=== PATIENT | female | born 1955 | race Caucasian/White ===

== ENCOUNTER 2019-07-09 11:26 | Inpatient (IN) ==
[2019-07-09] MEDS ORDERED: NORCO-7.5 PO PRN (13:13)
--- NOTE | 2019-07-09 13:14 | Diag Imaging Result Doc PS360 ---
EXAM: CHEST-2 VIEWS 07/09/2019 HISTORY: rectal pain TECHNIQUE: PA and lateral chest COMMENT: There is COPD. There are fibrotic changes in the right upper lobe and pleural space. There has been no apparent change since 10/07/2015. IMPRESSION: No evidence of acute disease. Electronically signed by Kenneth Edgar 07/09/2019 1:11 PM
[2019-07-09 13:46] LABS: HEMATOCRIT 49.6 % (37.0-47.0); HEMOGLOBIN 15.9 g/dL (12.0-16.0); MCH 28.5 PG (27-31); MCHC 32.1 g/dL (33-37); MCV 88.9 FL (81-99); MPV 11.2 FL (7.4-10.4); RBC 5.58 XMIL (4.2-5.4); RDW 14.5 % (11.5-14.5); WBC 6.55 X1000 (4.8-10.8)
[2019-07-09] MEDS ORDERED: XANAX PO PRN (13:46)
[2019-07-09] MEDS ORDERED: APRESOLINE IV PRN (13:48)
[2019-07-09] MEDS ORDERED: APRESOLINE IV ONE (13:48)
[2019-07-09 13:58] LABS: INR 1.02; PROTIME 13.5 Seconds (11.0-16.0)
[2019-07-09 13:59] LABS: PTT 40.1 Seconds (22.3-41.8)
--- NOTE | 2019-07-09 14:08 | EKG Report ---
Test Performed on : 07/09/2019 12:45:44 PM Test Reason : rectal pain Blood Pressure : / mmHG Vent. Rate : 083 BPM Atrial Rate : 083 BPM P-R Int : 130 ms QRS Dur : 074 ms QT Int : 390 ms P-R-T Axes : 071 016 048 degrees QTc Int : 458 ms Normal sinus rhythm. Possible Left atrial enlargement Borderline ECG When compared with ECG of 08-OCT-2015 08:16, Criteria for Inferior infarct are no longer present T wave inversion no longer evident in Anterolateral leads Confirmed by Tania RED, Cameron ([id number]) on 07/09/2019 6:56:27 PM
[2019-07-09 14:13] LABS: ALB/GLOB RATIO 1.3; ALBUMIN 4.4 g/dL (3.5-5.0); CALCIUM 10.1 mg/dL (8.8-10.2); POTASSIUM 4.3 mmol/L (3.5-5.1); TOTAL BILIRUBIN 0.55 mg/dL (0.20-1.00); TOTAL PROTEIN 7.8 g/dL (6.3-8.3)
[2019-07-09] MEDS: ZOFRAN PO PRN ×2 (14:27→21:22)
--- NOTE | 2019-07-09 15:21 | Diag Imaging Result Doc PS360 ---
EXAM: KUB ABDOMEN 07/09/2019 HISTORY: abd pain TECHNIQUE: KUB COMMENT: There is some stool in the colon without evidence of dilatation. The small bowel and stomach are not distended. There is no evidence organomegaly or mass. IMPRESSION: Nonspecific abdomen. Electronically signed by Kenneth Edgar 07/09/2019 3:18 PM
[2019-07-09] MEDS: DUONEB (A & A) INH PRN (15:23)
--- NOTE | 2019-07-09 16:44 | PROGRESS NOTE ---
DATE: 07/09/2019 SUBJECTIVE: I spoke with Marissa Rondon's , and he feels that over the last 2 years she has become less active, and over the last year she has not been able to help him outside, and he feels that she is in constant pain. She has to lay on her left side when sleeping because her right side hurts. I did discover that she has had a bone scan at [facility], and I will get that report for the chart. I have spoken to Dr. Mena and Dr. Reid about her admission. I reviewed all her labs and they appeared to be normal. She is hospitalized to figure out the etiology of this disabling pain, and also her weight loss. cc: MD Ray Chandra MD
[2019-07-09] MEDS ORDERED: NEURONTIN PO SCH (17:00)
--- NOTE | 2019-07-09 17:42 | HISTORY AND PHYSICAL ---
Ms Marissa Rondon is a 64-year-old white female patient of Dr. Brant Delarosa in [place]. For months she has experienced severe rectal pain which she describes mostly on the right side. She has been through multiple evaluations without an etiology for this pain. I have seen her twice in our outpatient offices. She has had a colonoscopy and I have done a rectal exam with no reason for her pain. She has also been evaluated by a neurosurgeon for her back. She has lost approximately 40 to 50 pounds over the last 8 months. She states she has had no rectal bleeding. She has some difficulty with bowel movements. When she was in the office today she was begging me to admit her because of this pain. It has caused her to take narcotics. PAST MEDICAL HISTORY: Hypertension, high cholesterol, coronary artery disease, depression. MEDICATIONS: Aspirin, Plavix, Lipitor, Coreg, Celexa, Neurontin, hydrocodone 7.5 mg, levothyroxine 75 mcg, Zofran. ALLERGIES: She states acetaminophen but she has been taking [place]. SOCIAL HISTORY: She lives in [place]. She does not smoke or drink. She is retired. REVIEW OF SYSTEMS: She underwent a CT scan initially in 01/15/2019 it was without contrast and was essentially normal. She also underwent a CTA of her chest because of an elevated D-dimer on 01/15/2019 which showed no evidence of embolism. She had another CT scan of her abdomen and pelvis for rectal pain on 04/09/2019 which showed a small amount of gas in the bladder, bilateral renal atrophy and diverticulosis. No other pathology was noted. She underwent colonoscopy per Dr. Andrew Reid on 01/10/2019 and it showed moderately severe diverticulosis and a lipoma was found in the ascending colon. Most recently she has had an MRI of her spine on 06/07/[address] Levi, neuro and spine physician in [place], and was told there was nothing abnormal about her back causing these symptoms. She has lost about 40 to 50 pounds over the last 8 months. She has had persistent rectal pain which she describes to the right of her rectum. The etiology is unknown. FAMILY HISTORY: Family history was performed with the patient was noncontributory. PHYSICAL EXAM: On exam, Ms Rondon is disheveled. She is middle aged. She is in no acute distress but does complain of persistent rectal pain and actually begged me to put her in the hospital try to figure out her pain. She is awake, cooperative. No focal deficit. No jaundice. No oral lesions. Poor dentition. No cervical or supraclavicular lymphadenopathy. Her heart has a regular rate. Lungs were clear to auscultation and percussion bilaterally. Her breasts are without obvious palpable mass. Her abdomen was soft, nontender, without palpable mass. No costovertebral tenderness. I have done a rectal exam on her in 2 separate occasions and no mass was felt within the rectum. She had no noticeable perianal pathology. She has palpable pulses, minimal peripheral edema. Her height is 5 feet 5 inches. Her weight is 147 pounds. Heart rate is 92, blood pressure 160/93, O2 saturation 98%. She is afebrile. LABS: Her white blood cell count is normal. Hematocrit is 49%. Electrolytes are within normal limits as is her liver function tests and her coagulations. Chest x-ray was essentially normal as was abdominal films. PLAN: I am going to admit her from my outpatient office to the hospital so that I can have the hospitalists help evaluate her for this rectal pain which I do not have an etiology for. I will leave reports from her radiologic studies on the chart. We will ask Dr. Reid to see her again for this rectal pain. cc: MD Ray Chandra MD
--- NOTE | 2019-07-09 17:59 | Diag Imaging Result Doc PS360 ---
EXAM: XRAY PELVIS W/HIP 2-3VW RT 07/09/2019 HISTORY: right side pain TECHNIQUE: AP pelvis and right hip three views COMMENT: The joint spaces are well-maintained. There is no evidence of acute fracture or dislocation. There is generalized osteopenia. There has been previous fusion at the disc space of L5-S1. IMPRESSION: No evidence of acute bony disease. Electronically signed by Kenneth Edgar 07/09/2019 5:57 PM
[2019-07-09] MEDS: PERCOCET-10 PO PRN (19:46)
--- NOTE | 2019-07-09 20:07 | PROGRESS NOTE ---
DATE: 07/09/2019 ADDENDUM: I agree with most components of the history, physical, assessment, and plan of the consultation. I evaluated the patient at bedside. At that time, Ms Rondon was lying down in left lateral decubitus. She denies any chest pain, shortness of breath, nausea, or vomiting at the moment; however, she does say that she has been having nausea every other day without any vomiting. She denies any abdominal pain; however, she persistently states that she is having pain which is a burning like feeling inside her rectum on the right side. She describes that pain as 8/10, which could come at any point during daytime, without any aggravating or relieving factors. She denies any urinary burning. She denies any urinary or fecal incontinence. She has not noticed any blood in the stool. She has previously seen a neurosurgeon who had suggested that her disk bulge was probably not contributing to her symptoms at the [facility]. VITAL SIGNS: Temperature of 97.7 degrees, pulse 70, respiratory rate 24, blood pressure 150/97. She is saturating 96% on room air. PHYSICAL EXAMINATION: General: Does not appear in any acute distress. Oral cavity: Moist. Lungs: Air entry bilaterally equal. No wheeze, rhonchi, crackles. Cardiovascular: S1, S2 normal. No murmur or gallop. Abdomen: Soft, nontender. Active bowel sounds. Extremities: No lower extremity edema. She does not have any localized tenderness over lumbar spine, sacrum, or coccyx. Her reflexes are 2+ bilaterally. Her sensation is intact to bilateral lower extremities. She is able to lift both upper and lower extremities above ground level and bend her knees without any trouble. Power is 5/5, equal bilaterally. LABORATORY DATA: CBC and BMP are unremarkable. No positive microbiological or imaging data. Hip/pelvis x-ray did not have any evidence of acute bony disease. Abdomen x-ray was unremarkable. ASSESSMENT AND PLAN: 1. Reported rectal pain on the right side. She does not have any localized tenderness over sacrum or coccyx. There is no external skin lesion over her buttocks or anus. She denies any fecal incontinence and any other fecal symptoms except constipation. I will keep patient on stool softeners to avoid constipation. I will await GI recommendation about if she would need any flexible sigmoidoscopy. I will also get pelvic ultrasound to rule out any pelvic organ prolapse, though she denies any symptoms of it at the moment. 2. 40 pound weight loss over last 9 months. The patient denies family history of cancer. She is an active smoker. I reviewed CT scan of chest, abdomen, and pelvis, which has been performed at some stage over the last 3 to 4 months, which did not detect any obvious mass. I advised her to have screening mammography outpatient and quit smoking. 3. History of essential hypertension, coronary artery disease with myocardial infarction in 2016, and depression. I will continue her home medications of aspirin, clopidogrel, atorvastatin, carvedilol, lisinopril. 4. Anxiety, depression, and neuropathy. I will continue her home gabapentin, alprazolam, and citalopram. I will also continue levothyroxine for hypothyroidism. 5. Recent history of intervertebral disk bulge at L1-L2 and L2-L3 levels. The patient denies any tingling or numbness of lower extremities. Her reflexes are 2+ bilaterally. Her sensations are intact. Her power is 5/5 at hip, knee, ankle joints. She denies any urinary or fecal incontinence. I advised her to continue regular physical activity. Thank you for allowing us to take part in this patient's care. She would need review of her medications outpatient. Hospitalist team will follow. cc: MD EVELIN Zheng
--- NOTE | 2019-07-09 20:28 | CONSULTATION ---
DATE OF CONSULTATION: 07/09/2019 REQUESTING PHYSICIAN: Dr. Pizano. REASON FOR CONSULTATION: Rectal pain and intermittent shortness of breath, weight loss. HISTORY OF PRESENT ILLNESS: Ms. Rondon is a 64-year-old female, who carries a past medical history of coronary artery disease, status post TX in 2016 with stent to the LAD, hyperlipidemia, congestive heart failure, anxiety and depression, COPD with continued tobacco use, hypertension, who reports for the last 8 to 9 months, she has been going to see Dr. Pizano for right-sided rectal pain, and she has been checked twice by him for hemorrhoids. She reports she has chronic constipation and has to take laxatives just to have a bowel movement. Her last BM was this afternoon. It was a small amount. She reports not having any appetite. She has lost 40 pounds over these last 8 to 9 months. She reports no night sweats. She went back to her PCP, Dr. Lowe, who referred her to Dr. Reid 4 months ago, who did a colonoscopy, who found diverticulosis. She reported that she was put on a diverticulosis diet, no corn, nuts, seeds, but she went back to Dr. Pizano today because she could no longer stand the rectal pain, and her home p.o. pain medications were not working anymore, so she was directly admitted to the hospital, and the hospitalists were consulted for intermittent shortness of breath that began this a.m. The patient appeared to have anxiety while I was in the room, and got up during the interview to go have a BM. PAST MEDICAL HISTORY: 1. Coronary artery disease, status post TX, with stenting to the LAD in 2016. 2. Hyperlipidemia. 3. Anxiety and depression. 4. COPD. 5. Hypertension. 6. Chronic constipation. 7. Diverticulosis. PAST SURGICAL HISTORY: 1. Appendectomy. 2. Stent to the LAD. 3. Tonsillectomy. 4. Back and neck surgery. 5. EGD [address] Reid. SOCIAL HISTORY: No alcohol. She continues to smoke a pack of cigarettes per day. FAMILY HISTORY: No coronary disease. HOME MEDICATIONS: Per EMR. REVIEW OF SYSTEMS: A 12 point review of systems was complete and negative except for those mentioned in the HPI. There is no fever, no chills, no real nausea or vomiting, no diarrhea, no chest pain, no wheezing. No abdominal pain per se. No night sweats. No appetite. 40 pound weight loss. Chronic constipation and intermittent shortness of breath that started this morning, without wheezes. She appears to have anxiety and complains of right-sided rectal pain that has been ongoing for 8 to 9 months. HOME MEDICATIONS: Again per EMR. PHYSICAL EXAMINATION: Vital Signs: Temperature is 98.4 degrees, heart rate 101, respirations 20, blood pressure was 201/126, O2 is 98% on room air. Manual heart rate was 100, blood pressure was 201/136. Repeat after hydralazine was 160/93. General: Ms. Rondon is an anxious appearing, 64- year-old female who one minute will be lying in the bed, then will sit up in the bed, then will run to the bathroom, will come back, will sit on the edge of the bed, ask for more blankets and cover up, just very anxious-appearing, but in no acute distress. HEENT: Atraumatic, normocephalic. PERRL. Neck: Supple. Trachea midline. Cardiovascular: S1, S2 appreciated. No murmurs, gallops, or rubs noted. Respiratory: Lung sounds clear bilaterally. GI: Soft, nontender, nondistended. Positive bowel sounds 4 quadrants. Extremities: Lower extremities were negative for edema. No signs of clubbing or cyanosis. Neurologic: The patient was awake, alert, oriented. Musculoskeletal: Did not note any issues with her getting from lying to sitting to standing to walking to the restroom. LABORATORY AND DIAGNOSTICS: Pending. ASSESSMENT AND PLAN: 1. Right-sided rectal pain. Have put an order for KUB. Going to rule out constipation. We will get GI involved. She reports that she got diagnosed with diverticulosis [address] Reid. She adamantly denies hemorrhoids. She states she has been checked several times for hemorrhoids. 2. Chronic constipation. We will continue with her home laxatives. 3. Diverticulosis. 4. Intermittent shortness of breath that started this a.m. The patient's oxygen saturations were 98% on room air. She does appear anxious. We will place an order for oxygen as needed and DuoNebs if needed. She does have antianxiety medications ordered as needed. 5. Anxiety and depression. Continue home medications. 6. Coronary artery disease, with a history of myocardial infarction and stenting. She is not complaining of any chest pain. 7. Hyperlipidemia. We will continue with home statin. 8. Chronic obstructive pulmonary disease. The patient continues to use tobacco. We need to continue the education on smoking cessation daily. 9. Accelerated hypertension upon admission. We will continue with Apresoline as needed and home medications. 10. Further recommendations to follow physician evaluation, laboratory and diagnostic data. Dictated by KENNY Blankenship for Ray Hampton MD cc: MD Dr. Harinder Zheng Dr., Dr. I agree with most componetn of history, physical, assessment and plan. A separate addendum has been dictated. EVELIN
[2019-07-09] MEDS: DULCOLAX PR SCH (21:23)
[2019-07-09] MEDS: MIRALAX PO SCH (21:23)
[2019-07-09] MEDS: COREG PO SCH (21:23)
[2019-07-09] MEDS: LIPITOR PO SCH (21:23)
[2019-07-10] MEDS: PERCOCET-10 PO PRN ×4 (01:47→20:39)
[2019-07-10] MEDS ORDERED: SYNTHROID PO SCH ×2 (07:00)
[2019-07-10] MEDS: PRINIVIL PO SCH (08:04)
[2019-07-10] MEDS: MOBIC PO SCH (08:04)
[2019-07-10] MEDS: CELEXA PO SCH (08:04)
[2019-07-10] MEDS: DULCOLAX PR SCH ×2 (08:04→20:43)
[2019-07-10] MEDS: PLAVIX PO SCH (08:04)
[2019-07-10] MEDS: ASPIRIN EC PO SCH (08:04)
[2019-07-10] MEDS: MILK OF MAGNESIA PO SCH (08:04)
[2019-07-10] MEDS: MIRALAX PO SCH ×2 (08:05→20:43)
[2019-07-10] MEDS: DUONEB (A & A) INH PRN (08:11)
[2019-07-10] MEDS: COREG PO SCH ×2 (08:32→20:38)
[2019-07-10] MEDS: NEURONTIN PO SCH ×3 (08:36→20:50)
--- NOTE | 2019-07-10 10:43 | Diag Imaging Result Doc PS360 ---
EXAM: US PELVIC NON-OB COMPLETE 07/10/2019 HISTORY: Right rectal pain and weight loss. TECHNIQUE: Endovaginal scan COMMENT: The uterus measures 3.3 x 3.2 x 1.9 cm with a 2 to 3 mm endometrial stripe. Right ovary is not identified. The left is 17 mm in greatest size. No abnormal fluid collections are demonstrated. IMPRESSION: No evidence of acute disease. Electronically signed by Kenneth Edgar 07/10/2019 10:40 AM
--- NOTE | 2019-07-10 11:42 | Diag Imaging Result Doc PS360 ---
EXAM: MRI PELVIS W/O CONTRAST INDICATION: right hip pain TECHNIQUE: COMPARISON: None. FINDINGS: There is an incidental small cortical bone island in the subcapital region of the right femoral neck. The osseous marrow signal involving the pelvis, sacrum, and hips appears normal. No significant hip joint effusions are appreciated. The tendinous structures of the hips and pelvis are grossly intact and exhibit normal signal. Review of the intrapelvic structures reveals sigmoid colonic diverticulosis. There has been a prior fusion at L5-S1. The lower lumbar spine is grossly unremarkable, otherwise. IMPRESSION: Essentially unremarkable MRI of the pelvis. Electronically signed by Italo Forbes 07/10/2019 11:40 AM
[2019-07-10 12:08] LABS: URINE SOURCE CLEAN CATCH
[2019-07-10 12:12] LABS: BILIRUBIN URINE NEGATIVE (NEGATIVE); BLOOD URINE NEGATIVE (NEGATIVE); COLOR YELLOW; GLUCOSE URINE NEGATIVE (NEGATIVE); KETONE URINE NEGATIVE (NEGATIVE); LEUKOCYTES URINE LARGE (NEGATIVE); NITRITE URINE POSITIVE (NEGATIVE); PH URINE 5.5; PROTEIN URINE TRACE mg/dL (NEGATIVE); SP GRAVITY URINE 1.033; TURBIDITY URINE HAZY (CLEAR); UROBILINOGEN URINE NORMAL (NORMAL)
[2019-07-10 12:13] LABS: UR EPITHELIAL CELLS <10 /HPF (<10); URINE BACTERIA 4+ /HPF; URINE RBC <10 /HPF (<10); URINE WBC TNTC /HPF (<10)
--- NOTE | 2019-07-10 13:03 | PROGRESS NOTE ---
DATE: 07/10/2019 This is hospital day 2 for Ms. Marissa Rondon. She is hospitalized with right rectal pain which is persistent and severe. The etiology of this pain is unknown. She has had normal CT scans and colonoscopy in the past. It has affected her where she cannot lay on her right side. When she sleeps, she is on her left side. She has also lost 40 pounds over the last 8 months, and her activity level has decreased. She does not look acutely ill. Her heart rate is 52. Blood pressure 111/63. O2 saturation 95%. She is a smoker. She rates her pain scale as 7/10, and there has been no change in her pain since her admission. Her white blood cell count is normal. Electrolytes are within normal limits. It must be noted that her TSH is high consistent with hypothyroidism, and we will increase her Synthroid. I have asked Dr. [facility] to see her. I have also spoke with Dr. [facility] to see her about her back and hip as a possible cause for her symptoms. Pelvic ultrasound has been requested. She is also getting an MRI. I will also order a urinalysis. cc: MD Aida Chandra MD
--- NOTE | 2019-07-10 14:27 | GASTROENTEROLOGY CONSULTATION ---
DATE: 07/10/2019 REASON FOR CONSULTATION: Rectal pain with diverticulosis. HISTORY OF PRESENT ILLNESS: Ms. Rondon is a 64-year-old female with a history of severe rectal pain, which the patient complains that it always happens on the right side and also mentioned that she always has constipation. The patient complained of nausea, denied any vomiting, and had a bowel movement yesterday. She takes laxatives like milk of magnesia, MiraLAX, and suppositories in order to regularize her bowel movements. The patient mentioned that past 8 to 9 months, she has lost approximately 50 pounds. She has denied any rectal bleeding. She saw Dr. Reid in December and a colonoscopy was done. The findings were moderately severe diverticulosis in the sigmoid colon. A lipoma was found in the ascending colon. The patient currently is on Plavix and aspirin because of her history of heart attack with stent. The patient mentioned that she has noticed a lot of mucous in her stools. PAST MEDICAL HISTORY: Heart attack status post stents, CAD, COPD, diverticulosis, hypertension, depression, anxiety, current smoker. PAST SURGICAL HISTORY: Lung surgery on the right side, back surgery, stent placement, appendectomy, and tonsillectomy. ALLERGIES: The patient is allergic to acetaminophen, propoxyphene napsylate and sulfa. SOCIAL HISTORY: The patient is , has 3 kids, and she is a smoker. She smokes 1 pack of cigarettes per day. Denies any alcohol or illicit drugs. FAMILY HISTORY: No significant GI malignancies. REVIEW OF SYSTEMS: As per HPI. Otherwise, 12-point review of system is negative. PHYSICAL EXAMINATION: Vital Signs: Temperature 98.5, pulse 51, respirations 18, blood pressure 110/57, oxygen saturation 95% on room air. The patient's weight is 147 pounds. BMI is 24.5 kg/m2. General: She is alert, oriented x3, and in no acute distress. HEENT: Pale conjunctivae. No icterus. PERRL. Neck: Supple. Lungs: Clear to auscultation in the anterior castanon. Cardiovascular: Regular rate. The patient is bradycardic. Abdomen: Soft, nontender, nondistended. Active bowel sounds heard in all 4 quadrants. Extremities: No clubbing, no cyanosis, no edema. Pedal pulses 2+ present bilaterally. Neurologic: She is alert and oriented x3. Nonfocal. Cranial nerves II through XII are grossly intact. IMAGING AND LABORATORY DATA: WBCs of 6.55, RBC 5.58, hemoglobin 15.9, hematocrit 49.6, platelet count 202,000. PT 13.5, INR is 1.02. Sodium 140, potassium 4.3, chloride 99, carbon dioxide 28, anion gap 13, BUN 17, creatinine 1.0, glucose 89, calcium 10.1. Bilirubin 0.55, AST 14, ALT 5, alkaline phosphatase 75, albumin is 4.4. TSH is 14.74. Urinalysis showed trace of protein, positive nitrites, large amount of leukocytes. Chest x-ray showed no evidence of acute disease. Abdominal x-ray showed nonspecific abdomen. Hip and pelvic x-ray showed no evidence of acute bony disease. Pelvis MRI was unremarkable. Pelvis ultrasound showed no evidence of acute disease. IMPRESSION AND PLAN: Rectal pain Constipation History of diverticulosis History of [place] s/p stent placement Hypertension Anxiety Depression COPD Smoker PLAN: Ms. Rondon is a 64-year-old female with a history of rectal pain. GI has been following her for constipation and rectal pain. The patient is currently on a bowel regimen, MiraLAX 17 grams and Dulcolax. She also is receiving milk of magnesia. The patient's TSH has been 14.74. She is receiving Synthroid 150 mcg per PCP. The patient had a recent colonoscopy in December, and it showed that she had moderately severe diverticulosis, and a lipoma in the ascending colon. Patient might need an LICENSED CLINICAL PSYCHOLOGIST consult. This plan was discussed with Dr. Reid. Thank you for your consult. Please call us for any further questions or concerns. Dictated by KENNY Mart for Andrew Reid MD cc: Aida Gudino MD Physician Attestation I have seen and examined the patient. I have discussed and reviewed the note by Essie COX and agree with findings and plan as documented. In brief, Ms. Marissa Rondon is a 64 year old woman with HTN, HLD, CAD s/p [place] and stents, GERD, chronic back pain, h/o GI bleed, chronic constipation who presented with persistent perianal/rectal pain and abnormal weight loss. The patient reports that her pain is worse with laying on right side and she has been avoiding food secondary to pain. She denies N/V, abdominal pain, rectal bleeding, or melena. She has had extensive negative workup including multiple CTs, MRI lumbar and pelvis, hip imaging, TVUS, rectal exam, and EGD/colonoscopy. CMP and CBC are unrevealing. She has elevated CRP and TSH. She is being treated for UTI. Recommend [employer] evaluation. If negative, then recommend referral to PMR at [facility] for evaluation for pelvic floor dysfunction. Her constipation is controlled with MoM. No indication for repeat endoscopic evaluation. Will follow with you. Please call with questions. EVELIN
--- NOTE | 2019-07-10 14:35 | ORTHOPAEDICS CONSULTATION ---
DATE: 07/10/2019 REASON FOR CONSULTATION: Right-sided pain. HISTORY OF PRESENT ILLNESS: Ms Rondon is a 64-year-old female who carries a past medical history of coronary artery disease, NV in 2016, hyperlipidemia, congestive heart failure, anxiety and depression, COPD with continued tobacco use, hypertension and chronic right-sided rectal pain. Apparently this has been going on for about [address] Pizano has checked her for several things including hemorrhoids. She apparently does have chronic constipation and has been taking laxatives regularly. She has reported significant weight loss without trying. She was sent to Dr. Reid who did a colonoscopy and found diverticulosis. Apparently she saw Dr. Pizano again yesterday and the rectal pain was so much that she was admitted to the hospital for pain control. Orthopedics has been consulted to rule out any other pain source. PAST MEDICAL HISTORY: 1. Coronary artery disease status post NV in 2016 with stenting to the LAD. 2. Hyperlipidemia. 3. Anxiety. 4. Depression. 5. COPD. 6. Primary essential hypertension. 7. Chronic constipation. 8. Diverticulosis. PAST SURGICAL HISTORY: 1. Appendectomy. 2. Stent to the LAD. 3. Tonsillectomy. 4. Back surgery. 5. Neck surgery. 6. EGD 4 months ago. SOCIAL HISTORY: Denies any alcohol use. She does smoke a pack of cigarettes per day. She denies illicit drug use. She still lives at home. FAMILY HISTORY: Noncontributory. HOME MEDICATIONS: Refer to the medical record. REVIEW OF SYSTEMS: A 10 point review of systems was completed and negative except what was mentioned above in the HPI. PHYSICAL EXAMINATION: Vital Signs: Temperature is 98.2 degrees, pulse is 51, respirations 16, blood pressure 100/61. She is 96% on room air. General: This is a very pleasant 64-year-old female in no acute distress. Neurological: She is alert and oriented x3 with no focal deficits. HEENT: Head is atraumatic, normocephalic. Pupils are equal, round, reactive to light. Cardiovascular: Regular rate and rhythm. Respiratory: Breathing is even and nonlabored. GI: Soft, nondistended. Extremities: She had no tenderness to palpation to either hip. We were able to do full range of motion with the leg without any pain. There was no tenderness to the groin. She did complain of some mild tenderness to palpation over the right hip bursa. She had no numbness or tingling to the leg. She had a 1+ pedal pulse. She really had no tenderness to palpation over the buttocks. ASSESSMENT: Right-sided rectal pain. PLAN: We are going to try and look at her MRI from last month. This sounds like a lumbar spine film. That was done at [facility]. So we are going to get the report and the MRI to review. Dr. Valle is going to review that and if it does not have the information he is looking for we will order possibly right hip or pelvis film. We are basically trying rule out if there is anything musculoskeletal going on. We will get that imaging and then decide on further plan. Thank you for the consultation. Dictated by KENNY Martinez for Rob Valle MD cc: KENNY Martinez MD Katherine Takundwa, MD
[2019-07-10] MEDS ORDERED: NS 50 ML ONE (16:15)
[2019-07-10] MEDS: ROCEPHIN 1 GM in NS 50 ML IV SCH (16:33)
[2019-07-10] MEDS: LIPITOR PO SCH (20:42)
--- NOTE | 2019-07-10 22:15 | PROGRESS NOTE ---
DATE: 07/10/2019 SUBJECTIVE: The patient is resting. She complains of right hip pain. OBJECTIVE: Vital signs: Temperature 98.1 degrees, blood pressure 110/56, heart rate 55, respirations 16, O2 saturations 94% on room air. General: This is an elderly female lying in bed in no acute distress. Heart: S1, S2 normal. Regular rate and rhythm. Lungs: Clear to auscultation bilaterally. Abdomen: Positive bowel sounds. Soft, nontender, nondistended. Extremities: No edema. No cyanosis. No calf tenderness. Neurologic: The patient is alert and oriented x3. LABORATORY DATA: Urinalysis positive for bacteria, large leukocytes, positive for nitrates. ASSESSMENT AND PLAN: 1. Right hip pain. So far, the imaging that has been obtained has been unremarkable. We will await further recommendations from the orthopedic surgeon. 2. Rectal pain. General surgery is following. 3. Poorly controlled hypothyroidism. The patient's Synthroid dosage has been increased. The patient will need to follow up with her primary care physician to repeat her TSH level as outpatient. The patient has been counseled about medication compliance. 4. Urinary tract infection. We will start the patient on Rocephin. We will await the results of the urine culture. This can be transitioned to oral antibiotic therapy once the culture results are available. 5. Asymptomatic bradycardia. Aware. 6. Situational depression. Continue on Celexa. 7. Constipation. Continue with laxative therapy. 8. Tobacco dependence. The patient has been counseled about smoking cessation. 9. Coronary artery disease with a history of myocardial infarction. Continue on the current cardiac medications. 10. Anxiety disorder. Continue on Xanax as needed. 11. Deep vein thrombosis prophylaxis. [facility] cc: Aida Gudino MD [facility]
[2019-07-11] MEDS: PERCOCET-10 PO PRN ×4 (04:42→21:59)
[2019-07-11] MEDS: SYNTHROID PO SCH (06:15)
[2019-07-11] MEDS: DUONEB (A & A) INH PRN ×3 (07:36→15:22)
[2019-07-11 07:42] LABS: ALB/GLOB RATIO 1.3; ALBUMIN 3.4 g/dL (3.5-5.0); CALCIUM 8.7 mg/dL (8.8-10.2); CREATININE 1.3 mg/dL (0.5-0.9); POTASSIUM 3.9 mmol/L (3.5-5.1); TOTAL BILIRUBIN 0.19 mg/dL (0.20-1.00)
[2019-07-11 07:56] LABS: HEMATOCRIT 39.5 % (37.0-47.0); HEMOGLOBIN 12.3 g/dL (12.0-16.0); MCH 28.7 PG (27-31); MCHC 31.1 g/dL (33-37); MCV 92.1 FL (81-99); MPV 11.4 FL (7.4-10.4); RBC 4.29 XMIL (4.2-5.4); RDW 14.7 % (11.5-14.5); WBC 6.23 X1000 (4.8-10.8)
[2019-07-11] MEDS: PRINIVIL PO SCH (08:33)
[2019-07-11] MEDS: COREG PO SCH (08:34)
[2019-07-11] MEDS: NEURONTIN PO SCH ×4 (12:35→21:18)
[2019-07-11] MEDS: DULCOLAX PR SCH (12:35)
[2019-07-11] MEDS: MIRALAX PO SCH ×3 (12:35→21:20)
--- NOTE | 2019-07-11 13:10 | GASTROENTEROLOGY PROGRESS NOTE ---
DATE: 07/11/2019 SUBJECTIVE: Ms. Rondon is a 64-year-old female. She was resting in bed. She complained about having rectal pain, but has denied any nausea or vomiting. The patient had 3 bowel movements yesterday and denied having any today. OBJECTIVE: Vital Signs: Temperature 97.8, pulse 51, respirations 20, blood pressure 120/58, oxygen saturation 96% on room air. Her weight is 147 pounds. BMI is 24.5 kg/m2. General: She is alert, oriented x3, and in no acute distress. HEENT: Pale conjunctivae. No icterus. PERRL. Neck: Supple. Lungs: Clear to auscultation in the anterior castanon. Cardiovascular: The patient is bradycardic. Abdomen: Soft, nontender, nondistended. Active bowel sounds heard in all 4 quadrants. Extremities: No clubbing, no cyanosis, no edema. Pedal pulses 2+ present bilaterally. Neurologic: She is alert and oriented x3. LABORATORY DATA: WBCs of 6.23, RBC 4.29, hemoglobin 12.3, hematocrit 39.5, platelet count is 148,000. Sodium 137, potassium 3.9, chloride 101, carbon dioxide 25, anion gap 11, BUN 28, creatinine 1.3, glucose 90. Calcium 8.7. Total bilirubin is 0.19. AST 12, ALT is 5, alkaline phosphatase is 59. Albumin is 3.4. The patient's urine culture has shown gram- negative nidia. IMPRESSION AND PLAN: 1. Rectal pain. 2. Constipation. 3. History of diverticulosis. 4. History of [place] s/p stent placement. 5. Hypertension. 6. Anxiety. 7. Depression. 8. COPD. 9. UTI PLAN: Ms. Rondon is a 64-year-old female, with a history of rectal pain. GI is following her for her constipation and rectal pain. The patient has denied any nausea, vomiting, or abdominal pain. She has denied any rectal bleeding. She says that when she lies down on the right side it hurts. The patient's TSH has been elevated it is 14.74, and CRP is elevated, it is 6.05, The patient is receiving antibiotics for her urinary tract infection. 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 The patient's constipation is improving. She is on Dulcolax, MiraLAX and milk of magnesia. We do not plan to do a repeat colonoscopy because her recent colonoscopy was done in December 2018, it showed some moderately severe diverticulosis in the sigmoid colon, and a lipoma was found in the ascending colon. We will continue to monitor the patient and follow the plan of care per PCP. This plan was discussed with Dr. Reid. Please call us for any further questions or concerns. Dictated by KENNY Mart for Andrew Reid MD cc: Aida Gudino MD Physician Attestation I have seen and examined the patient. I have discussed and reviewed the note by Essie COX and agree with findings and plan as documented. In brief, Ms. Marissa Rondon is a 64 year old woman with HTN, HLD, CAD s/p [place] and stents, GERD, chronic back pain, h/o GI bleed, chronic constipation who presented with persistent, unexplained perianal/rectal pain. Patient is NPO for diagnostic exam under anesthesia. Will follow with you. EVELIN
--- NOTE | 2019-07-11 13:17 | ORTHOPAEDICS PROGRESS NOTE ---
DATE: 07/11/2019 SUBJECTIVE: Ms. Rondon is lying in bed. She is still complaining of some right-sided pain. OBJECTIVE: Right lower extremity exam: Still able to move the leg well without much pain. Really not a lot tenderness to palpation along the hip or groin. She has good sensation in lower extremity. She has 1+ pedal pulse. ASSESSMENT: Right hip pain. PLAN: The MRI that we got showed really no muscular or skeletal causes of her pain. At this point we do not think that this is a musculoskeletal issue. From our standpoint, if no other cause for her pain can be found, it would really be physical therapy and to follow up with us as an outpatient. Please let us know if we can be of any further assistance. Dictated by KENNY Martinez for Rob Valle MD cc: KENNY Martinez MD Katherine Takundwa, MD
[2019-07-11] MEDS: MILK OF MAGNESIA PO SCH (14:26)
[2019-07-11] MEDS: CELEXA PO SCH ×3 (14:26→21:18)
[2019-07-11] MEDS: PLAVIX PO SCH (14:26)
[2019-07-11] MEDS: ASPIRIN EC PO SCH (14:26)
[2019-07-11] MEDS: MOBIC PO SCH (14:26)
[2019-07-11] MEDS: ROCEPHIN 1 GM in NS 50 ML IV SCH (16:05)
[2019-07-11] MEDS ORDERED: COREG PO SCH (17:19)
[2019-07-11] MEDS: NS 1,000 ML IV SCH (18:06)
--- NOTE | 2019-07-11 20:45 | PROGRESS NOTE ---
DATE: 07/11/2019 SUBJECTIVE: The patient continues to complain of rectal pain. She is scheduled to undergo an anal and vaginal exam under anesthesia. OBJECTIVE: Vital Signs: Temperature 98 degrees, blood pressure 101/60, heart rate 55, respirations 20, O2 saturation is 98% on room air. General: This is a chronically ill-appearing, elderly female, lying in bed in no acute distress. Heart: S1, S2 normal. Bradycardic. Lungs: Equal air entry bilaterally. No wheezing. No rales. No rhonchi. Abdomen: Positive bowel sounds. Soft, nontender, nondistended. Extremities: No edema. No cyanosis. Neurologic: The patient is alert and oriented x3. LABORATORY DATA: BUN 28, creatinine 1.3, glucose 90. Platelets 148,000, white blood cell count 6.2. AST 12, ALT 5. ASSESSMENT AND PLAN: 1. Rectal pain. The workup is in progress. Management as per the general surgeon. 2. Acute kidney injury. We will check urine studies. We will also start the patient on IV fluids. We will discontinue the lisinopril at this time. 3. Urinary tract infection. The urine culture is growing gram-negative rods. Continue with Rocephin pending culture results. 4. Hypothyroidism. Continue on Synthroid. The patient will need to follow up with her primary care physician for repeat thyroid functions studies upon discharge. 5. Neuropathy. Continue on gabapentin. 6. Deep vein thrombosis prophylaxis. Will start the patient on SCDs. cc: Aida Gudino MD [facility]
[2019-07-11] MEDS: LIPITOR PO SCH (21:04)
[2019-07-12] MEDS: NS 1,000 ML IV SCH ×3 (02:42→21:27)
[2019-07-12] MEDS: ZOFRAN PO PRN ×2 (02:42→15:34)
[2019-07-12] MEDS: PERCOCET-10 PO PRN ×3 (04:05→21:26)
[2019-07-12] MEDS: SYNTHROID PO SCH ×2 (04:05→08:45)
[2019-07-12 07:01] LABS: CALCIUM 8.5 mg/dL (8.8-10.2); POTASSIUM 4.1 mmol/L (3.5-5.1)
[2019-07-12] MEDS: DUONEB (A & A) INH PRN ×3 (07:47→15:28)
[2019-07-12 08:33] LABS: URINE SOURCE CLEAN CATCH
[2019-07-12 08:46] LABS: BILIRUBIN URINE NEGATIVE (NEGATIVE); BLOOD URINE NEGATIVE (NEGATIVE); COLOR YELLOW; GLUCOSE URINE NEGATIVE (NEGATIVE); KETONE URINE NEGATIVE (NEGATIVE); LEUKOCYTES URINE TRACE (NEGATIVE); NITRITE URINE NEGATIVE (NEGATIVE); PROTEIN URINE TRACE mg/dL (NEGATIVE); SP GRAVITY URINE 1.026; TURBIDITY URINE CLEAR (CLEAR); UROBILINOGEN URINE NORMAL (NORMAL)
[2019-07-12 08:48] LABS: UR EPITHELIAL CELLS >10 /HPF (<10); URINE BACTERIA NEGATIVE /HPF; URINE RBC <10 /HPF (<10); URINE WBC <10 /HPF (<10)
[2019-07-12 08:55] LABS: UR CREAT RANDOM 128.8 mg/dL (11-20); UR PROT RANDOM 16.8 mg/dL
[2019-07-12] MEDS: MIRALAX PO SCH ×2 (09:44→21:27)
[2019-07-12] MEDS: NEURONTIN PO SCH ×3 (09:45→16:05)
[2019-07-12] MEDS: CELEXA PO SCH (09:45)
--- NOTE | 2019-07-12 11:00 | GASTROENTEROLOGY PROGRESS NOTE ---
DATE: 07/12/2019 SUBJECTIVE: Ms. Rondon is a 64-year-old female, resting in bed. Complains of rectal pain, but she has denied any nausea or vomiting. OBJECTIVE: Vital Signs: Temperature is 98.1 degrees, pulse is 55, respirations 20, blood pressure 120/64, oxygen saturation 96% on room air. The patient's weight is 147 pounds. BMI is 24.5 kg/m2. General: She is alert, oriented x3, and in no acute distress. HEENT: Pale conjunctivae. No icterus. PERRL. Neck: Supple. Lungs: Clear to auscultation in the anterior castanon. Cardiovascular: The patient is bradycardic. Abdomen: Soft, nontender, nondistended. Active bowel sounds heard in all 4 quadrants. Extremities: No clubbing, no cyanosis, no edema. Pedal pulses 2+ present bilaterally. Neurologic: She is alert and oriented x3. LABORATORY DATA: Hematology is from 07/11/2019. WBC is 6.23, RBC 4.29, hemoglobin 12.3, hematocrit 39.5, platelet count is 148,000. Sodium 137, potassium 4.1, chloride 104, carbon dioxide 22, anion gap 11, BUN 25, creatinine 1.0, glucose 88, calcium 8.5. The patient's urinalysis today showed trace of protein and trace of leukocytes. IMPRESSION AND PLAN: 1. Rectal pain. 2. Constipation. 3. History of diverticulosis. 4. History of heart attack, status post stent placement. 5. Hypertension. 6. Anxiety. 7. Depression. 8. Chronic obstructive pulmonary disease. 9. Urinary tract infection. 10. Hypothyroidism PLAN: Ms. Rondon is a 64-year-old female with a history of rectal pain. GI is following her for constipation and rectal pain. The patient is n.p.o. for a diagnostic procedure under anesthesia. The patient has denied any bowel movements today. The patient is on a bowel regimen with MiraLAX and milk of magnesia. She is also receiving IV fluids, normal saline at 75 mL, and is on antibiotic Rocephin for her UTI and levothyroxine for her hypothyroid. A ORAL AND MAXILLOFACIAL SURGERY RESIDENT consult has been put in, we will await what the findings will be. We will continue to monitor the patient and follow the plan of care per PCP. This plan was discussed with Dr. Reid. Please call us for any further questions or concerns. Dictated by KENNY Mart for Andrew Reid MD cc: Aida Gudino MD Physician Attestation I have seen and examined the patient. I have discussed and reviewed the note by Essie COX and agree with findings and plan as documented. In brief, Ms. Marissa Rondon is a 64 year old woman with HTN, HLD, CAD s/p [place] and stents, GERD, chronic back pain, h/o GI bleed, chronic constipation who presented with persistent, unexplained perianal/rectal pain despite extensive negative GI workup. She had rectovaginal exam done that was unremarkable under anesthesia. Recommend referral to [facility] for PMR evaluation for pelvic floor dysfunction and anorectomy manometry/balloon expulsion testing. I suspect her weight loss is from food restriction in the setting of pain. Recommend a [id number] approach. MTDD
[2019-07-12] MEDS: ROCEPHIN 1 GM in NS 50 ML IV SCH (15:45)
[2019-07-12] MEDS ORDERED: DIPRIVAN 1% ONE (16:10)
[2019-07-12] MEDS ORDERED: XYLOCAINE-MPF 2% ONE (16:11)
[2019-07-12] MEDS ORDERED: QUELICIN (DOSE) ONE (16:11)
--- NOTE | 2019-07-12 16:19 | PROGRESS NOTE ---
DATE: 07/12/2019 Ms. Rondon is being treated for a urinary tract infection and we found that she was hypothyroid and have increased her Synthroid. But all evaluation of her hip, her colon, an CT scan have been negative as a reason for her right-sided rectal pain which continues despite her hospitalization. I am going to take her to surgery today to perform an anal exam under anesthesia and TOOL AND CUTTER GRINDER exam. cc: MD Aida Chandra MD
[2019-07-12] MEDS ORDERED: ZOFRAN ONE (16:25)
[2019-07-12] MEDS ORDERED: DECADRON ONE (17:02)
[2019-07-12] MEDS ORDERED: EPHEDRINE ONE (17:06)
[2019-07-12] MEDS: ASPIRIN EC PO SCH (18:45)
[2019-07-12] MEDS: PLAVIX PO SCH (18:45)
[2019-07-12] MEDS: PERIDEX MT SCH (21:26)
[2019-07-12] MEDS: LIPITOR PO SCH (21:27)
--- NOTE | 2019-07-12 22:40 | PROGRESS NOTE ---
DATE: 07/12/2019 SUBJECTIVE: The patient continues to complain of rectal pain. She states that she cannot lie on that side without being in excruciating pain. OBJECTIVE: Vital signs: Temperature 98.6 degrees, blood pressure 120/72, heart rate 78, respirations 18, O2 saturation 98% on room air. General: This is an elderly female lying in bed in no acute distress. Heart: S1, S2 normal. Regular rate and rhythm. Lungs: Clear to auscultation bilaterally. Abdomen: Positive bowel sounds, soft, nontender, nondistended. Extremities: No edema, no cyanosis. Neurologic: The patient is alert and oriented x4. LABORATORIES: Sodium 137, potassium 4.1, chloride 104, CO2 22, BUN 25, creatinine 1, glucose 88. ASSESSMENT AND PLAN: 1. Rectal pain. The patient is scheduled to undergo an anal and vaginal exam under anesthesia today. We will await the results of this diagnostic procedure. 2. Acute kidney injury. Improved. We will continue with IV fluids. The patient's urine output has improved. 3. Urinary tract infection secondary to Escherichia coli. Continue on Rocephin. 4. Hypothyroidism. Continue on Synthroid. 5. Neuropathy. Continue on gabapentin. 6. Deep vein thrombosis prophylaxis. Continue with sequential compression devices. cc: Aida Gudino MD MTDD
--- NOTE | 2019-07-13 01:28 | OPERATIVE NOTE ---
PROCEDURE DATE: 07/12/2019 PREOPERATIVE DIAGNOSIS: Right rectal pain, unknown etiology. POSTOPERATIVE DIAGNOSIS: Right rectal pain, unknown etiology. PRINCIPAL PROCEDURE: 1. Anal exam under anesthesia. 2. Rigid proctoscope exam. SURGEON: Dr. India Pizano. ANESTHESIA: General. ESTIMATED BLOOD LOSS: Less than 10 mL. DRAINS: None. INDICATIONS: Ms Marissa Rondon is a 64-year-old, white female who has complained of significant right rectal pain. She has had extensive evaluation of this pain including MRI of her hip, CT scan of her abdomen and pelvis, colonoscopy and multiple exams. We felt we should under anesthesia do a perianal and rectal exam to be sure we were not missing any pathology and also have Gynecology do a vaginal exam. DESCRIPTION OF PROCEDURE: The patient was brought to the operating room, placed supine, received general anesthesia, was intubated and Dr. Verde began the procedure by doing a vaginal exam. She felt she had a normal cervix, pelvic and rectal exam. The patient was then placed prone. I taped her buttocks apart and I used a Hill-Mix retractor to thoroughly evaluate the anal canal. There was no pathology such as anal fissure. There was no significant external or internal hemorrhoids. There was no evidence of infection her anal fistula. I did a rigid proctoscopic exam and there was no evidence of inflammation involving the rectum and no mass. I did a digital rectal exam, and it appeared to be normal. The patient was then placed back on her bed and was extubated and taken to the recovery room. She will return to the floor. cc: MD Aida Chandra MD
[2019-07-13] MEDS: PERCOCET-10 PO PRN ×2 (02:53→09:26)
[2019-07-13] MEDS: SYNTHROID PO SCH ×2 (05:21→06:01)
[2019-07-13 06:54] LABS: HEMATOCRIT 34.9 % (37.0-47.0); HEMOGLOBIN 11.1 g/dL (12.0-16.0); MCHC 31.8 g/dL (33-37); MCV 91.1 FL (81-99); MPV 11.6 FL (7.4-10.4); RBC 3.83 XMIL (4.2-5.4); WBC 5.69 X1000 (4.8-10.8)
[2019-07-13 07:29] LABS: AGAP 13; ALB/GLOB RATIO 1.4; ALBUMIN 3.4 g/dL (3.5-5.0); ALKALINE PHOSPHATASE 49 U/L (32-104); BUN 15 mg/dL (8-22); CALCIUM 8.8 mg/dL (8.8-10.2); CHLORIDE 105 mmol/L (98-107); COSMO 276; CREATININE 0.9 mg/dL (0.5-0.9); ESTIMATED GFR > 60; GLUCOSE 122 mg/dL (70-104); GOT 11 U/L (10-30); GPT < 5 U/L (10-36); POTASSIUM 4.6 mmol/L (3.5-5.1); SODIUM 137 mmol/L (136-145); TCO2 19 mmol/L (25-35); TOTAL BILIRUBIN 0.25 mg/dL (0.20-1.00); TOTAL PROTEIN 5.9 g/dL (6.3-8.3)
[2019-07-13] MEDS: MILK OF MAGNESIA PO SCH ×2 (08:16→08:19)
[2019-07-13] MEDS: PLAVIX PO SCH (08:17)
[2019-07-13] MEDS: PERIDEX MT SCH (08:17)
[2019-07-13] MEDS: CELEXA PO SCH (08:17)
[2019-07-13] MEDS: MIRALAX PO SCH (08:17)
[2019-07-13] MEDS: ASPIRIN EC PO SCH (08:17)
[2019-07-13] MEDS: NEURONTIN PO SCH (08:21)
--- NOTE | 2019-07-13 08:54 | OPERATIVE NOTE ---
PROCEDURE DATE: 07/12/2019 SURGEON: Dr. Rola Verde. AIRPORT DUTY MANAGER: None. PREOPERATIVE DIAGNOSIS: Right-sided rectal pain. POSTOPERATIVE DIAGNOSIS: Right-sided rectal pain with normal pelvic exam. PROCEDURE PERFORMED: Gynecological pelvic exam under general anesthesia. ANESTHESIA: General endotracheal. ESTIMATED BLOOD LOSS: None. COMPLICATIONS: None. DESCRIPTION OF PROCEDURE: The patient was taken to the OR where a time-out was performed to confirm correct patient and correct procedure. General anesthesia was adequately established. The patient was placed in a dorsal supine position and legs were placed in a butterfly position to allow for pelvic examination. A speculum was inserted into the vagina, and the cervix was adequately visualized. The full circumference of the vaginal vault was assessed and visualized without any abnormalities noted. The speculum was removed and half of the speculum placed back into the vagina to assess again anterior, posterior, and sidewalls of vaginal vault. Again, no abnormalities noted. Bimanual exam was then performed speculum removed. On bimanual exam, a 4 to 5 cm mobile uterus was noted without any palpable adhesions or adnexal masses. A rectovaginal exam was also performed to assess for nodules or adhesions within the rectovaginal septum. No abnormalities noted on exam. Instrument count was noted to be correct at the end of procedure. The patient tolerated procedure well, and rectal assessment performed by Dr. Pizano commenced. cc: Aida Gudino MD [facility]
--- NOTE | 2019-07-13 11:10 | GASTROENTEROLOGY PROGRESS NOTE ---
DATE: 07/13/2019 . SUBJECTIVE: Ms. Rondon is a 64-year-old female resting in bed. She was sitting at the side of the bed having her breakfast. The patient has denied any nausea, vomiting, but she did mention having some rectal pain. OBJECTIVE: Vital Signs: Temperature 98.1 degrees, pulse 63, respirations 16, blood pressure 134/68, oxygen saturation is 93% on room air. The patient's weight is 147 pounds. BMI is 24.5 kg/m2. General: She is alert, oriented x3, and in no acute distress. HEENT: Pale conjunctivae, no icterus. PERRL. Neck: Supple. Lungs: Clear to auscultation in the anterior castanon. Cardiovascular: Regular rate and rhythm. Abdomen: Soft, nontender, nondistended. Active bowel sounds heard in all 4 quadrants. Extremities: No clubbing, no cyanosis, no edema. Pedal pulses 2+ present bilaterally. Neurologic: She is alert, oriented x3. LABORATORY DATA: WBCs are 5.69, RBC 3.83, hemoglobin 11.1, hematocrit 34.1, platelet count 134. Sodium 137, potassium 4.6, chloride 105, carbon dioxide 19, anion gap 13. BUN 15, creatinine 0.9, glucose 122, calcium 8.8, total bilirubin 0.25. AST 11, ALT less than 5, alkaline phos 49, albumin 3.4. Urinalysis on 07/12 showed trace of protein and trace of leukocytes. IMPRESSION AND PLAN: - Rectal pain - Constipation - Diverticulosis - UTI - Abnormal weight loss PLAN: Ms. Rondon is a 64-year-old female. She has a history of rectal pain and GI is following her for constipation and rectal pain. The patient had rectovaginal exam done under anesthesia with Dr. eVrde and Dr. Pizano, and no abnormalities were found. The patient will need a referral to the B for evaluation of pelvic floor dysfunction. The patient has discharge orders. We will continue to monitor the patient and follow the plan of care per PCP. This plan was discussed with Dr. Reid. Please call us for any further questions or concerns. Dictated by KENNY Mart for Andrew Reid MD cc: Aida Gudino MD Physician Attestation I have seen and examined the patient. I have discussed and reviewed the note by Essie COX and agree with findings and plan as documented. Patient likely has pelvic floor disfunction and needs anorectal manometry with balloon- expulsion testing. She will likely ultimately need referral to PMR for biofeedback therapy. EVELIN
[2019-07-13 11:13] VITALS: BP 155/55
--- NOTE | 2019-07-14 00:10 | CONSULTATION ---
DATE OF CONSULTATION: 07/13/2019 REASON FOR CONSULTATION: Right-sided rectal pain with unknown etiology. HISTORY OF PRESENT ILLNESS: Ms. Rondon is a pleasant 64-year-old female who has been admitted for severe rectal pain with unknown etiology. The patient reports pain starting 8 months ago with constipation. She describes pain in her rectal area alternating between dull and sharp, and traveling down the right side of her leg. The severity of pain has progressively worsened over the past 2 weeks. The patient reports inability to ambulate and hydrocodone no longer controlling pain. The patient denies pain with bowel movement; however, bowel movements only occur with use of MiraLAX. Ms. Rondon has been assessed by Dr. Pizano for hemorrhoids, and has had a colonoscopy completed by Dr. Reid. Only diverticulosis was noted on colonoscopy. The patient denies any pelvic pain or pelvic pressure, and also denies postmenopausal bleeding. Gynecology was consulted to assess for pelvic abnormalities and possible OPTION TRADER cause of right-sided rectal pain. PAST MEDICAL HISTORY: COPD, myocardial infarction, CAD, diverticulosis, hypertension, anxiety, depression. PAST SURGICAL HISTORY: Back surgery, stent placement, appendectomy, right-sided lung surgery, tonsillectomy. ALLERGIES: Acetaminophen, propoxyphene, napsylate and sulfa. FAMILY HISTORY: Noncontributory. SOCIAL HISTORY: Positive tobacco use, admits to 1 pack per day use. Denies alcohol or drug use. OBSTETRICAL HISTORY: G3, P3. Three prior vaginal deliveries, no complications. GYNECOLOGICAL HISTORY: Denies postmenopausal bleeding, abnormal vaginal discharge or pelvic organ prolapse. PHYSICAL EXAMINATION: Vital Signs: Temperature 98.1 degrees Fahrenheit, pulse rate 63, respiration rate 16, blood pressure 134/68, O2 saturation 93% on room air. General: No acute distress. The patient is alert, awake and oriented x3. Vaginal exam was completed under anesthesia. Please see operative report. Abdominal exam soft, nontender to palpation. Extremities: No edema. No calf tenderness. No cyanosis noted. LABORATORY DATA: WBCs 5.69, hemoglobin 11.1, hematocrit 34.9, platelets 134,000. IMPRESSION: 1. Right-sided rectal pain. 2. Constipation. 3. Diverticulosis. 4. Hypertension. 5. Chronic obstructive pulmonary disease. 6. Smoker. 7. Anxiety. 8. Depression. PLAN: Ms. Rondon is a 64-year-old female who is admitted for right- sided severe rectal pain with unknown etiology. OPTION TRADER exam under anesthesia showed normal pelvic anatomy and no known cause for rectal pain. Consider pelvic floor therapy with EMG biofeedback and possible electrical stimulation to treat pelvic joint pain, and pain noted in the buttocks, hip and tailbone area. OPTION TRADER consult was greatly appreciated. We will continue to follow as needed. Please call with any questions. cc: Aida Gudino MD [facility]
--- NOTE | 2019-07-14 14:37 | DISCHARGE SUMMARY ---
ADMISSION DATE: 07/09/2019 DISCHARGE DATE: 07/13/2019 ADMITTING DIAGNOSIS: Right-sided pelvic pain, unknown etiology. DISCHARGE DIAGNOSIS: Right-sided pelvic pain, unknown etiology. PRINCIPAL PROCEDURE: 1. GI medicine consultation. 2. Hip and pelvis x-rays. 3. Pelvis MRI. 4. Orthopedic consultation. 5. Hospitalist consultation. 6. INVENTORY CHECKER consultation. 7. Anal and rectal exam under anesthesia and FORGE HELPER pelvic exam under anesthesia on 07/12/2019. DISCHARGE DISABILITIES: Full. DISCHARGE MEDICATIONS: She is to return to her home medications but we have changed her Synthroid from 75 mcg a day to 150 mcg per day. We have added Cipro 500 mg p.o. b.i.d. because of an E coli urinary tract infection. I also gave her Percocet 10 because of her ongoing pelvic pain. DISCHARGE DIET: Regular. DISCHARGE DISPOSITION: I spoke with her primary care physician, Dr. Brant Lowe today by phone. We will work to try to get her to a urogynecology clinic at [facility] in hopes that the etiology of this pain can be determined. It must be noted that she is already on Neurontin 600 mg t.i.d. She will be discharged home under the care of her . HOSPITAL COURSE: Ms. Marissa Rondon is a 64-year-old white female patient of Dr. Brant Lowe Jr. in [place]. She has developed what she describes as a right rectal or pelvic pain and she has been extensively evaluated for this pain and we cannot find the etiology. As an outpatient she has undergone over the last [address] scans of her abdomen and pelvis. She has undergone an MRI of her back because of previous back surgery and she has been seen by a back surgeon in [place] and was told that her pain is not related to her back. I have seen her in our outpatient offices and done a rectal and anal exams but her pain has persisted and I decided to admit her at her request when I saw her in my outpatient office on 07/09/2019. She was actually begging me to admit her because of her pelvic pain. During the hospitalization I had several consultants see her in hopes that we could determine the etiology of her pain. She has had a recent colonoscopy by Dr. Reid which showed severe diverticulosis but no evidence of diverticulitis or other pathology. I had orthopedic, Rob Valle see her for possible right hip pathology causing her pain. I have had the hospitalist help me in her evaluation in addition to Dr. Verde, INVENTORY CHECKER. Despite her extensive evaluation as an inpatient, etiology of her pain persists. We did find that she had a urinary tract infection and we treated that with antibiotics. We found that she was hypothyroid. We increased her Synthroid. Her pain does persist and I have discharged her home on Percocet 10 in addition to her Neurontin for pain. Next week we will begin trying to get her an appointment at [facility] urogynecology clinic. I have discussed all this with her at the bedside. She will be discharged home under the care of her and I will keep in touch with her and I have spoken with Dr. Brant Lowe Jr. about her care during this hospitalization. cc: MD Aida Chandra MD
== END 2019-07-13 12:01 | disposition home or self-care (01) | DRG 394 ==
LOC: DIRADM 11:26 → 4N 11:50
PROVIDERS: ADMIT Internal Medicine; ATTEND Surgery